=== PATIENT | female | born 1985 | race Caucasian/White ===

== ENCOUNTER 2022-09-18 06:00 | Emergency (ER) | payer OTHER, SELFPAY ==
[2022-09-18 06:30] VITALS: BP 133/70; PULSE 77; RESP 18; TEMP 36.4; O2SAT 98; BMI 26.6
--- NOTE | 2022-09-18 07:35 | ED_ITS ---
HPI - General Adult General Chief complaint: Abdominal Pain Stated complaint: back pain, possible UTI Time Seen by Provider: 09/18/22 07:31 Source: patient Mode of arrival: ambulatory Limitations: no limitations History of Present Illness HPI narrative: 36-year-old female with no major medical problems presents with low back pain, urinary frequency, urgency and dysuria. Symptoms started 24 hours ago. Symptoms are moderate in nature. There is no clear relieving or exacerbating features. There is no nausea vomiting. She denies any fevers or chills. Denies any vaginal bleeding and discharge. Patient describes her back pain is aching in nature. There is no numbness or tingling. There is no falls or injury. The pain does not radiate. Related Data Previous Rx's Medication Instructions Recorded cephalexin 500 mg capsule 500 mg PO Q12H 3 days #6 caps 09/18/22 phenazopyridine 200 mg tablet 200 mg PO TID PRN pain 6 doses #6 09/18/22 (Pyridium) tabs Allergies Allergy/AdvReac Type Severity Reaction Status Date / Time Unable to Assess Allergy Unverified 09/18/22 06:46 [facility] Social History Social History Advance Directives: No Advance Directives Information Provided: No Physical Exam ED Vital Signs: Vital Signs - 24 hr 09/18/22 06:30 Temperature 97.5 F Pulse Rate 77 Respiratory Rate 18 Blood Pressure 133/70 Pulse Oximetry 98 Oxygen Delivery Method Room Air BMI result Body Mass Index 26.6 GEN: Well developed, no acute distress, alert, oriented HEENT: Normocephalic, atraumatic, normal external ears, nose appears normal, no oropharyngeal edema or exudates Eyes: Normal to appearance Neck: Supple, no lymphadenopathy Respiratory: Talks in complete sentences, no respiratory distress, clear to auscultation bilaterally Cardiovascular: Regular rate and rhythm, no murmurs rubs or gallops Abdomen: Soft, nontender, nondistended, no guarding, no rebound Back: No CVA tenderness Extremities: No clubbing cyanosis or edema Neurologic: No focal neurologic deficits, cranial nerves 2-12 intact, strength is 5/5 bilaterally Skin: No rash Course Course Course Narrative: Patient presents with urinary complaints low back pain. She has no CVA tenderness. Suspect UTI. There is no vaginal discharge or bleeding. Exam is benign. There is no indication for emergent imaging. Will check urinalysis, urine . Will address treatment based on symptoms and laboratory analysis. Reevaluation(s) Reevaluation #1: Urinalysis shows mild pyuria. Certainly if there is any a urinary tract infections quite early. Will treat with Keflex twice daily for 3 days. Will also put the patient on Pyridium. Symptoms could be more consistent with bladder spasm or irritation. Her examination remains benign. Doubt any significant acute intra-abdominal process. Time: 08:10 Medical Decision Making Medical Decision Making [facility] Narrative: Patient presents with low back pain and urinary complaints. Examination is benign. Her abdomen is soft, nontender, no rebound or guarding. There is no CVA tenderness. Doubt kidney stone, appendicitis, cholecystitis, diverticulitis, colitis, IBD, IBS. She also denies any vaginal bleeding or discharge. Her last menstrual period was on the 04 of September. She would like to be tested for . Suspect UTI. Doubt pyelonephritis. Will check uri nalysis. Will treat symptomatically as needed. Differential Diagnosis Differential Diagnoses: The differential diagnosis associated with the presentation includes (UTI, pyelonephritis, IBD, IBS, musculoskeletal pain) Dysuria, low back pain Lab Data [facility] Lab Attestation statement: I reviewed the patient's lab results. Labs: Lab Results 09/18/22 09/18/22 Range/Units 07:52 07:52 Urine Color Yellow Urine Appearance Clear Urine pH 6.0 (5.0-9.0) Ur Specific [place] 1.010 (1.005-1.025) Urine Protein Negative (Neg-Trace) mg/dL Urine Glucose (UA) Negative (Negative) mg/dL Urine Ketones Trace (Negative) mg/dL Urine Blood Trace H (Negative) Urine Nitrite Negative (Negative) Ur Leukocyte Esterase Trace H (Negative) Urine RBC 0-2 (0-2) /HPF Urine WBC 6-10 H (0-5) /HPF Ur Squamous Epith Cells 6-10 (0-2) /HPF Urine Bacteria Trace (None Seen) Hyaline Casts 0-2 (0-2) /LPF Urine Test NEGATIVE (NEGATIVE) Prescription Management I considered prescription management with: Pain Medication and Antibiotic Discharge Plan Discharge Clinical Impression: Dysuria, Low back pain Patient Disposition: Home, Self-Care Instructions: Acute Low Back Pain (ED), Dysuria (ED) Prescriptions: New phenazopyridine [Pyridium] 200 mg tablet 200 mg PO TID PRN (Reason: pain) Qty: 6 0RF cephalexin 500 mg capsule 500 mg PO Q12H 3 Days Qty: 6 0RF Referrals: Physician,None [Primary Care Provider] -
[2022-09-18 07:59] LABS: Appearance Urine Clear; Color Urine Yellow; Glucose Urine UA Negative (Negative); Leukocyte Esterase Urine Trace (Negative); Nitrite Urine Negative (Negative); UMIC TRIGGER UACC YES; Urine Blood Trace (Negative); Urine Ketones Trace mg/dL (Negative); Urine Protein Negative (Neg-Trace)
[2022-09-18 08:01] LABS: UPreg QC Valid YES; Urine Pregnancy NEGATIVE (NEGATIVE)
[2022-09-18 08:04] LABS: Bacteria Urine Trace (None Seen); Hyaline Casts Urine 0-2 /LPF (0-2); RBC Urine 0-2 /HPF (0-2); UACC Culture Trigger YES
--- NOTE | 2022-09-18 08:22 | PC.NURSE ---
inst reviewed and teaching done re home care, follow up if needed and reasons to return,
== END 2022-09-18 08:22 | disposition home or self-care (01) ==
PROVIDERS: Physician Assistant; Emergency Provider Emergency Medicine
DX: R30.0 Dysuria (principal); M54.50 Low back pain, unspecified
CPT/HCPCS: 81001; 81003; 81025; 87086; 99282; 99283

== ENCOUNTER 2022-12-07 12:32 | Emergency (ER) | payer OTHER, SELFPAY ==
[2022-12-07 12:35] VITALS: BP 143/80; PULSE 82; RESP 18; TEMP 35.6; O2SAT 98
--- NOTE | 2022-12-07 12:35 | ED_ITS ---
HPI - Dental/Oral General Chief complaint: General Medical Stated complaint: facial swelling Time Seen by Provider: 12/07/22 12:53 Source: patient Mode of arrival: ambulatory Limitations: no limitations History of Present Illness HPI Narrative: patient is a 37-year-old female who presents emergency department for evaluation of dental pain with facial swelling. She reports onset of pain 4 days ago, right upper dental pain. Three days ago she woke in the morning with a small amount of swelling to the lip in this region and feels that this has progressed over the past couple of days. She has trialed [id number] Tylenol and ibuprofen without any improvement. She tried contacting her dentist but was unable to be seen. She has dental fractures in addition to dental caries. When asked she denies any fevers, chills, difficulty swallowing, shortness of breath, difficulty breathing or chest pain. Teeth map: 1. Fracture/ cavity 2. fracture/cavity Related Data Previous Rx's Medication Instructions Recorded cephalexin 500 mg capsule 500 mg PO Q12H 3 days #6 caps 09/18/22 phenazopyridine 200 mg tablet 200 mg PO TID PRN pain 6 doses #6 09/18/22 (Pyridium) tabs amoxicillin 875 mg-potassium 1 tab PO BID #14 tabs 12/07/22 clavulanate 125 mg tablet chlorhexidine gluconate 0.12 % 15 ml mucous membrane BID #118 mL 12/07/22 mouthwash oxycodone 5 mg tablet 5 mg PO Q8H PRN pain #10 tabs 12/07/22 Allergies Allergy/AdvReac Type Severity Reaction Status Date / Time No Known Allergies Allergy Verified 12/07/22 12:37 Review of Systems Review of Systems: Constitutional : No Fever, No Chills, No changes in PO intake, No difficulty speaking,? no recent dental procedure, no heat or cold intolerance while eating, no recent face trauma, ENT/Mouth : No swallowing difficulty, no change in voice, No jaw pain, positive localized facial swelling, no drooling, no trismus, no bleeding, no throat swelling, no lacerations, no tongue swelling, gum swelling, Eyes: No Eye Pain, No periorbital Swelling Cardiovascular : No Chest Pain, No SOB Respiratory : No Cough, No Sputum, No Wheezing, No Smoke Exposure, No Dyspnea Gastrointestinal : No Nausea, No Vomiting, No Diarrhea Genitourinary : No Dysuria Musculoskeletal : No Myalgias Skin : No rash, no facial swelling or redness, Neuro : No Weakness, No Numbness, No Headache Yes all other systems are reviewed and are negative [facility] Past Medical History Attestation statement: The following information was validated with the patient. Source: old records reviewed Social History Social History Advance Directives: No Advance Directives Information Provided: Yes Physical Exam 2 Vital Signs: Vital Signs: Last Vital Signs Temp 96.0 F L 12/07/22 12:35 Pulse 82 12/07/22 12:35 Resp 18 12/07/22 12:35 BP 143/80 H 12/07/22 12:35 Pulse Ox 98 12/07/22 12:35 O2 Del Method Room Air 12/07/22 12:35 BMI result Body Mass Index 30.0 Appearance: Alert. Oriented X3. No acute distress. Head: Normal external exam. Normocephalic. Atraumatic. Eyes: PERRLA. EOMI. Conjunctiva and sclera normal. Eyelids normal. ENT: EAC normal. TM's Normal. Pharynx normal. Uvula midline. Moist mucous membranes.? ?No trismus noted.? No drooling noted.? No muffled voice noted. Dentition:? Patient with poor dentition throughout with multiple old fractured teeth with multiple dental caries.? mild Gingival erythema. No fluctuance, although on the lateral gingiva of #1 there is white discoloration concerning for potential abscess.? Not consistent with peritonsillar abscess. Not consistent with dental abscess.? No salivary duct obstruction noted. Neck: Normal inspection. Neck supple. FROM. No adenopathy. Thyroid Normal. No meningeal signs. No neck mass noted.? Trachea midline. CVS: Normal heart rate and rhythm. Heart sound normal. No murmurs noted. Pulses normal throughout. Respiratory: No respiratory distress. Painless inspiration. Breath sounds normal. No wheezes/rales/rhonchi noted. Chest nontender. ?No accessory muscle usage noted or decreased air movement noted. Back:? Full range of motion noted. Skin: Skin warm and dry.? Normal skin color.? Normal skin turgor. No rashes/lesions/lacerations noted. Extremities: Extremities exhibit normal range of motion.? Extremities nontender. Neuro: Oriented X 3.? No motor deficit.? No sensory deficit.? Reflexes normal. Course Course Course Narrative: MAISHA 12:35pm - 37yoF presenting to the ED with c/o of right upper dental pain since thursday worse today. Reports she has been taking [id number] Tylenol and Motrin no symptomatic relief. She reports her pain is 8/10. Has tried to call dentist although they did not have any available appointments. She woke up with facial swelling today which she did not have on Thursday. Unsure if she has had fevers. Denies any trouble swallowing or breathing. On exam patient has old dental fracture to right upper molar. No obvious gingival swelling or erythema or abscess. No trismus or drooling. Normal voice. Plan: Patient stable to be evaluated in emergency Minor care. Medical Decision Making Medical Decision Making MDM Narrative: patient is a 37-year-old female who presents emergency department for evaluation of swelling in addition to the dental pain as per HPI. At the time my examination she is overall well-appearing, nontoxic, afebrile without tachycardia. There is no respiratory compromise. She is speaking clear full sentences. There does not appear to be any peritonsillar her concern for retropharyngeal abscess upon examination. She has multiple dental fractures and caries present, there is gingival erythema in although there is no overt fluctuance, on the lateral gingiva of tooth #1. There is whitish discoloration concerning for potential abscess. I reviewed this finding with patient, offered to have serum labs in addition to CT imaging to evaluate further for abscess. At this time patient declines CT imaging, she would like to trial a course of antibiotics and follow up with her dentist outpatient. She is going to contact their office tomorrow to schedule an appointment. At this time I feel that discharge home would be reasonable, we discussed worrisome signs and symptoms that would warrant re-evaluation in the emergency department, will send prescription for Augmentin in addition to oxycodone to patient's pharmacy. We discussed precautions with use of oxycodone. She verbalized understanding. Differential Diagnosis Differential Diagnoses: The differential diagnosis associated with the presentation includes ( As noted above) External Record Review External record reviewed: Other ( reviewed [employer] no conflicts) Tests considered The following testing was considered but not selected: I considered serum labs and CT imaging as noted above however patient declined and using shared decision-making patient to be discharged home Prescription Management I considered prescription management with: Pain Medication ( oxycodone) and Antibiotic ( Augmentin) Discharge Plan Discharge Clinical Impression: Dental infection Patient Disposition: Home, Self-Care Instructions: Dental Abscess (ED) Additional Instructions: as we discussed, there was concern after examination that there may be a potential right upper dental abscess, these typically require drainage/aspiration, and we could further investigate for this with the use of CT imaging. However, at this time you declined and wished to follow-up with your dentist. I have sent a prescription for Augmentin, antibiotic, to your pharmacy please complete the entire course. In addition I have sent a prescription for chlorhexidine mouthwash please use this as prescribed. You can take ibuprofen 200 mg, 3 tablets (600mg) every 6-8 hours as needed for pain, in addition to Tylenol 500 mg, 2 tablets (1,000mg) every 4-6 hours as needed for pain, but not to exceed 3 doses daily (3,000mg).? Have sent a prescription for oxycodone to the pharmacy for severe pain that is unrelieved by acetaminophen / ibuprofen. Oxycodone is a narcotic medication, may make you drowsy and it can be addictive, you should not drive, drink alcohol, or operate machinery while taking this medication. please return back to emergency department with any new or worsening symptoms or concerns. Prescriptions: New amoxicillin-pot clavulanate 875-125 mg tablet 1 tab PO BID Qty: 14 0RF chlorhexidine gluconate 0.12 % mouthwash 15 ml mucous membrane BID Qty: 118 0RF oxycodone 5 mg tablet 5 mg PO Q8H PRN (Reason: pain) Qty: 10 0RF Rx Instructions: Partial Fill upon patient request. No Action phenazopyridine [Pyridium] 200 mg tablet 200 mg PO TID PRN (Reason: pain) Qty: 6 0RF cephalexin 500 mg capsule 500 mg PO Q12H 3 Days Qty: 6 0RF Referrals: Physician,None [Primary Care Provider] -
== END 2022-12-07 14:03 | disposition home or self-care (01) ==
PROVIDERS: Emergency Provider Student in an Organized Health Care Education/Training Program
DX: K04.7 Periapical abscess without sinus (principal)
CPT/HCPCS: 99283

== ENCOUNTER 2023-01-31 12:20 | Emergency (ER) | payer OTHER, SELFPAY ==
--- NOTE | ~2023-01-31 | XR_ITS ---
EXAMINATION: Right ankle and right foot. CLINICAL INDICATION: Rule out fracture. TECHNIQUE: 3 views right foot and 2 views right ankle. FINDINGS: Right foot: There is no visible acute fracture or dislocation or subluxation. Visualized bones and intertarsal, tarsometatarsal and intertarsal phalangeal joints are normal. No bony erosive changes. No spurring. Right ankle: There is mild bilateral ankle soft tissue swelling. The ankle mortise and subtalar joints are normal. A small retrocalcaneal enthesophyte is seen. No acute fracture or dislocation. XR/XR ankle RT min 3V IMPRESSION: Small retrocalcaneal enthesophyte. No visible acute fracture, dislocation. Mild bimalleolar soft tissue swelling. Unremarkable right foot exam.
--- NOTE | ~2023-01-31 | XR_ITS ---
EXAMINATION: Right ankle and right foot. CLINICAL INDICATION: Rule out fracture. TECHNIQUE: 3 views right foot and 2 views right ankle. FINDINGS: Right foot: There is no visible acute fracture or dislocation or subluxation. Visualized bones and intertarsal, tarsometatarsal and intertarsal phalangeal joints are normal. No bony erosive changes. No spurring. Right ankle: There is mild bilateral ankle soft tissue swelling. The ankle mortise and subtalar joints are normal. A small retrocalcaneal enthesophyte is seen. No acute fracture or dislocation. XR/XR foot RT 2V IMPRESSION: Small retrocalcaneal enthesophyte. No visible acute fracture, dislocation. Mild bimalleolar soft tissue swelling. Unremarkable right foot exam.
[2023-01-31 13:27] VITALS: BP 108/61; PULSE 90; RESP 19; TEMP 36.6; O2SAT 98
--- NOTE | 2023-01-31 13:29 | ED_ITS ---
HPI - Extremity Problem General Chief complaint: Extremity Injury, Lower Stated complaint: R ankle inj Time Seen by Provider: 01/31/23 13:40 Source: patient Mode of arrival: ambulatory Limitations: no limitations History of Present Illness HPI Narrative: 37 yo female here with complaints of right ankle pain after eversion injury last evening. No weakness, tingling, numbness of the extremity. Related Data Previous Rx's Medication Instructions Recorded cephalexin 500 mg capsule 500 mg PO Q12H 3 days #6 caps 09/18/22 phenazopyridine 200 mg tablet 200 mg PO TID PRN pain 6 doses #6 09/18/22 (Pyridium) tabs amoxicillin 875 mg-potassium 1 tab PO BID #14 tabs 12/07/22 clavulanate 125 mg tablet chlorhexidine gluconate 0.12 % 15 ml mucous membrane BID #118 mL 12/07/22 mouthwash oxycodone 5 mg tablet 5 mg PO Q8H PRN pain #10 tabs 12/07/22 Allergies Allergy/AdvReac Type Severity Reaction Status Date / Time No Known Allergies Allergy Verified 01/31/23 13:27 Review of Systems Review of Systems: Yes all other systems are reviewed and are negative Constitutional: Constitutional: Reports no additional constitutional complaints, Denies body ache(s), Denies chills, Denies fever(s), Denies headache(s) and Denies weakness Eyes: Eyes: Reports no additional eye complaints and Denies change in vision ENT: Reports system reviewed and no additional complaints, except as documented, Denies dizziness, Denies headache(s), Denies nasal congestion, Denies nasal discharge and Denies neck pain Cardiovascular: Cardiovascular: Reports no additional cardiovascular complaints, Denies chest pain, Denies leg edema and Denies dyspnea Respiratory: Respiratory: Reports no additional respiratory complaints, Denies cough and Denies dyspnea Gastrointestinal: Gastrointestinal: Reports no additional gastrointestinal complaints, Denies abdominal pain, Denies diarrhea, Denies nausea and Denies vomiting Genitourinary: Genitourinary: Reports no additional female genitourinary complaints and Denies urinary incontinence Musculoskeletal: Musculoskeletal: Reports no additional musculoskeletal complaints, Denies back pain, Reports arthralgias, Denies joint swelling, Denies neck pain, Denies numbness and Denies tingling Integumentary/Breasts: Skin/Breast: Reports system reviewed and no additional complaints, except as docu and Denies rash Neurologic: Reports system reviewed and no additional complaints, except as documented, Denies Abnormal speech present, Denies dizziness, Denies headache(s), Denies numbness, Denies tingling and Denies weakness PMFSH Past Medical History Attestation statement: The following information was validated with the patient. Source: old records reviewed and nursing notes reviewed Social History Social History Advance Directives: No Physical Exam Vital Signs: Vital Signs: Last Vital Signs Temp 98 F 01/31/23 13:27 Pulse 90 01/31/23 13:27 Resp 19 01/31/23 13:27 BP 108/61 01/31/23 13:27 Pulse Ox 98 01/31/23 13:27 O2 Del Method Room Air 01/31/23 13:27 BMI result Body Mass Index 30.0 Const: General: cooperative, healthy appearing, comfortable and no acute distress Orientation/consciousness: patient oriented x3 Limitations: no limitations HEENT: Head: Yes normal to inspection Ears: hearing grossly normal bilaterally General nose exam: Normal external nose present Face and sinus: Yes normal facial exam Mouth: Normal oral and palatal mucosa present Throat: Yes posterior oropharynx normal Eyes: General: appearance normal, both eyes and all related structures Pupils: Equal, round and reactive pupils present Neck: Neck: Yes normal visual inspection Chest: Chest palpation & inspection: normal inspection of the chest Resp: Effort & Inspection: normal respiratory effort Auscultation: clear to auscultation bilaterally Cardio: Rate: regular rate Rhythm: regular rhythm Peripheral pulses: Peripheral pulses 2+ throughout GI: Inspection: Yes normal to inspection Palpation (GI): Soft to palpation and nontender Auscultation: normal bowel sounds Back/Spine/Pelvis: Thoracic/Lumbar Spine: thoracic and lumbar spine normal to inspection Skin: General skin exam: no rashes or lesions noted Neuro: General: patient oriented x3, no focal motor deficits and normal sensation to monofilament Cranial nerves: Yes Equal, round and reactive pupils present Cognition (Neuro): normal cognition Speech: No Abnormal speech present Gait exam (Neuro): Normal gait present Motor exam (neuro): 5/5 motor strength present throughout Extrem: Other: There is swelling, ecchymosis, tenderness over the right lateral ankle. There is no tenderness on palpation over the foot. There is no tenderness over medial ankle or posterior ankle. Negative Pacheco sign. Normal DP and PT pulses. Normal sensation. Normal active and passive range of motion. General: Yes normal to inspection Course Course Course Narrative: Patient complains of right ankle pain and swelling after fall No other complaint This rapid medical exam done in triage pending full evaluation in ER Reevaluation(s) Reevaluation #1: x-ray shows no fracture. likely sprain. patient placed in Maximilian wrap and given crutches for home. Reviewed rice. Reviewed worrisome signs and symptoms when to return to the emergency room. [place]ondral plan for discharge home. Medical Decision Making Medical Decision Making MDM Narrative: 37-year-old female here with right ankle pain after an eversion injury which occurred last evening. Will check x-rays. Differential Diagnosis Differential Diagnoses: The differential diagnosis associated with the presentation includes Fracture, sprain, dislocation low concern for vascular injury Independent Interpretation I performed an independent interpretation of an: Plain X-Ray Interpretation: I independently reviewed the x-ray and agree with the radiology report Radiology Impression Discussion of test interpretation with radiology: I have reviewed the radiologist's reading. Radiologist Impression: [address] [address] XRay Report Signed Patient: Cherelle Gomez MR#: [id number] : 1985 Acct:[id number] Age/Sex: 37 / F ADM Date: 01/31/23 Loc: .ED Attending Dr: Ordering Physician: David Rojo Date of Service: 01/31/23 Procedure(s): XR ankle RT min 3V Accession Number(s): [id number] cc: Physician,Unknown ; David Rojo~ EXAMINATION: Right ankle and right foot. CLINICAL INDICATION: Rule out fracture. TECHNIQUE: 3 views right foot and 2 views right ankle. FINDINGS: Right foot: There is no visible acute fracture or dislocation or subluxation. Visualized bones and intertarsal, tarsometatarsal and intertarsal phalangeal joints are normal. No bony erosive changes. No spurring. Right ankle: There is mild bilateral ankle soft tissue swelling. The ankle mortise and subtalar joints are normal. A small retrocalcaneal enthesophyte is seen. No acute fracture or dislocation. XR/XR ankle RT min 3V IMPRESSION: Small retrocalcaneal enthesophyte. No visible acute fracture, dislocation. Mild bimalleolar soft tissue swelling. Unremarkable right foot exam. Discharge Plan Discharge Clinical Impression: Ankle sprain and strain Patient Disposition: Home, Self-Care Instructions: Ankle Sprain (ED) Additional Instructions: APPLY ICE TO THE AREA USE THE AIRCAST AND CRUTCHES FOR THE NEXT FEW DAYS UNTIL ABLE TO BEAR WEIGHT WITHOUT EXPERIENCING PAIN ELEVATE THE EXTREMITY TAKE MOTRIN FOR PAIN NEEDED Prescriptions: No Action phenazopyridine [Pyridium] 200 mg tablet 200 mg PO TID PRN (Reason: pain) Qty: 6 0RF cephalexin 500 mg capsule 500 mg PO Q12H 3 Days Qty: 6 0RF amoxicillin-pot clavulanate 875-125 mg tablet 1 tab PO BID Qty: 14 0RF chlorhexidine gluconate 0.12 % mouthwash 15 ml mucous membrane BID Qty: 118 0RF oxycodone 5 mg tablet 5 mg PO Q8H PRN (Reason: pain) Qty: 10 0RF Rx Instructions: Partial Fill upon patient request. Referrals: Physician,Unknown J [Primary Care Provider] - 1 week Stand Alone Forms: Work/School Release
== END 2023-01-31 15:01 | disposition home or self-care (01) ==
PROVIDERS: Emergency Provider Emergency Medicine
DX: S93.401A Sprain of unspecified ligament of right ankle, initial encounter (principal); S96.911A Strain of unspecified muscle and tendon at ankle and foot level, right foot, initial encounter; X50.1XXA Overexertion from prolonged static or awkward postures, initial encounter; Y93.9 Activity, unspecified; Y92.9 Unspecified place or not applicable; Y99.9 Unspecified external cause status
CPT/HCPCS: 73610; 73620; 99282; 99283

== ENCOUNTER 2023-02-19 15:48 | Emergency (ER) | payer OTHER, SELFPAY ==
[2023-02-19 16:45] VITALS: BP 136/79; PULSE 88; RESP 18; TEMP 36.6; O2SAT 99; BMI 27.5
--- NOTE | 2023-02-19 16:52 | ED_ITS ---
HPI - General Adult General Chief complaint: Recheck/Abnormal Lab/Rx Stated complaint: not feeling well Time Seen by Provider: 02/19/23 16:51 Source: patient Mode of arrival: ambulatory Limitations: no limitations History of Present Illness HPI narrative: 37 y o female presenting for evaluation of possible . Reports positive urine hcg x1 at home today, requesting confirmation. LMP 01/16, states cycles are pretty regular, approximately every 28 days. Patient also c/o breast tenderness and mild nausea. No vaginal spotting or discharge. Denies chest pain, shortness of breath, dizziness, abdominal pain, vomiting, diarrhea, fevers or chills. Not currently taking vitamins. Related Data Previous Rx's Medication Instructions Recorded cephalexin 500 mg capsule 500 mg PO Q12H 3 days #6 caps 09/18/22 phenazopyridine 200 mg tablet 200 mg PO TID PRN pain 6 doses #6 09/18/22 (Pyridium) tabs amoxicillin 875 mg-potassium 1 tab PO BID #14 tabs 12/07/22 clavulanate 125 mg tablet chlorhexidine gluconate 0.12 % 15 ml mucous membrane BID #118 mL 12/07/22 mouthwash oxycodone 5 mg tablet 5 mg PO Q8H PRN pain #10 tabs 12/07/22 cephalexin 500 mg tablet 500 mg PO Q6H 10 days #40 tabs 02/19/23 vit no.95-ferrous 1 tab PO DAILY #30 tabs 02/19/23 fumarate 28 mg-folic acid 800 mcg tablet () Allergies Allergy/AdvReac Type Severity Reaction Status Date / Time No Known Allergies Allergy Verified 02/19/23 16:45 Review of Systems Review of Systems: Constitutional : No Weight loss, No Fever, No Chills, No Fatigue, No Malaise Cardiovascular : No Chest Pain, No SOB, No Dyspnea on Exertion, No Orthopnea, No Edema, No Palpitations Respiratory : No Cough, No Sputum, No Wheezing Gastrointestinal : + Nausea, No Vomiting, No Diarrhea, No Constipation, No abdominal Pain, No Hematochezia, No Melena Genitourinary : No Dysuria, No Urinary Frequency, No Hematuria, +breast tenderness Musculoskeletal : No joint pain, No Myalgias, No Joint Swelling Skin : No Skin Lesions, No rash Neuro : No Weakness, No Numbness, No Dizziness, No Headache Psych : No Anxiety/Panic, No Depression All other systems reviewed and are negative Yes all other systems are reviewed and are negative [facility] Past Medical History Attestation statement: The following information was validated with the patient. Source: old records reviewed and nursing notes reviewed Social History Social History Advance Directives: No Physical Exam ED Vital Signs: Vital Signs - 24 hr 02/19/23 16:45 02/19/23 17:03 Temperature 97.8 F 99.1 F Pulse Rate 88 74 Respiratory Rate 18 16 Blood Pressure 136/79 140/67 H Pulse Oximetry 99 98 Oxygen Delivery Method Room Air Room Air BMI result Body Mass Index 27.5 VSS Appearance: Alert.? Oriented X3.? No acute distress.? Head: Normocephalic, atraumatic, no step-offs or deformities Eyes: Pupils equal, round and reactive to light.? Neck: Normal inspection.? Neck supple.? CVS: Normal heart rate and rhythm.? Pulses normal.? Respiratory: No respiratory distress.? Breath sounds normal.? Abdomen: Soft and nontender.? Skin: Skin warm and dry.? Normal skin color.? Normal skin turgor.? Extremities: No lower extremity edema.? No calf ttp. 5/5 strength to bilateral upper and lower extremities Neuro: Oriented X 3.? No motor deficit.? No sensory deficit. CN 2-12 intact Course Course Course Narrative: RME: 37 yold female presents to the ED to confirm pregancy. patient states no phsyical complaints. took pregnany test at home that was positive and just wants to confimr . URine pregancy ordered Reevaluation(s) Reevaluation #1: Positive urine will have her follow-up with OBGYN to have a ultrasound to confirm intrauterine . No need for emergent ultrasound at this time. UA with positive infection will give Keflex. Will give her information on OBGYN in the area. And sent her home with vitamins. Educated patient on diagnosis and treatment plan, answered all question, patient verbalizes understanding. At this time patient will be discharged home, advised to return with new or worsening symptoms. Educated on worrisome signs and symptoms and when to return. At this time I feel comfortable discharge home. Time: 17:39 Medical Decision Making Medical Decision Making [facility] Narrative: 37 y o female presenting for request for testing, LMP 01/16 and positive urine hcg x1 at home today PE benign Possible vs false positive test. Well-appearing, VSS, tolerating PO intake. No medical complaints. Unlikely metabolic derangements. Breast tenderness likely secondary to hormonal imbalances versus unlikely inflammatory breast cancer, mastitis, cellulitis or necrotizing infection or abscess. Nausea likely secondary to possible versus hormones unlikely from acute abdomen or abdominal causes. No vaginal bleeding unlikely threatened /miscarriage Plan -- UA, urine hcg Differential Diagnosis Differential Diagnoses: The differential diagnosis associated with the presentation includes Possible vs false positive test. Well-appearing, VSS, tolerating PO intake. No medical complaints. Unlikely metabolic derangements. Breast tenderness likely secondary to hormonal imbalances versus unlikely inflammatory breast cancer, mastitis, cellulitis or necrotizing infection or abscess. Nausea likely secondary to possible versus hormones unlikely from acute abdomen or abdominal causes. No vaginal bleeding unlikely threatened /miscarriage Admission/Observation Consideration of admission/observation: Escalation of care including admission/observation considered No indication Lab Data [facility] Lab Attestation statement: I reviewed the patient's lab results. Labs: Lab Results 02/19/23 Range/Units 17:02 Urine Color Yellow Urine Appearance Clear Urine pH 6.0 (5.0-9.0) Ur Specific Ranger <= 1.005 (1.005-1.025) Urine Protein Negative (Neg-Trace) mg/dL Urine Glucose (UA) Negative (Negative) mg/dL Urine Ketones Trace (Negative) mg/dL Urine Blood Negative (Negative) Urine Nitrite Positive H (Negative) Ur Leukocyte Esterase Trace H (Negative) Urine RBC 0-2 (0-2) /HPF Urine WBC 6-10 H (0-5) /HPF Ur Squamous Epith Cells 6-10 (0-2) /HPF Urine Bacteria 4+ (None Seen) Hyaline Casts 0-2 (0-2) /LPF Urine Test POSITIVE H (NEGATIVE) External Record Review External record reviewed: Inpatient record Critical Care Time Critical Care Time Critical Care Time: No Discharge Plan Discharge Clinical Impression: Positive urine test, Urinary tract infection Patient Disposition: Home, Self-Care Instructions: (ED), Urinary Tract Infection in (ED) Additional Instructions: Take your medications as prescribed. If you were prescribed antibiotics today, it is important that you take your medication to their entirety, do not skip any doses, do not finish them early. Follow-up with your primary care provider this week. Return to the emergency department with new or worsening symptoms. In case of emergency call 911 Follow up with your OBGYN Take your prenatals daily. You will need a quantitative Hcg blood level to determine how far along you are and an ultrasound to confirm intrauterine . Prescriptions: New cephalexin 500 mg tablet 500 mg PO Q6H 10 Days Qty: 40 0RF PNV cmb#95-ferrous fumarate-FA [] 28 mg iron- 800 mcg tablet 1 tab PO DAILY Qty: 30 3RF No Action phenazopyridine [Pyridium] 200 mg tablet 200 mg PO TID PRN (Reason: pain) Qty: 6 0RF cephalexin 500 mg capsule 500 mg PO Q12H 3 Days Qty: 6 0RF amoxicillin-pot clavulanate 875-125 mg tablet 1 tab PO BID Qty: 14 0RF chlorhexidine gluconate 0.12 % mouthwash 15 ml mucous membrane BID Qty: 118 0RF oxycodone 5 mg tablet 5 mg PO Q8H PRN (Reason: pain) Qty: 10 0RF Rx Instructions: Partial Fill upon patient request. Referrals: Physician,Mitzi Rincon [Primary Care Provider] - 2 days Surinder You MD [Physician] - 1 day Stand Alone Forms: Work/School Release Interventions: ED Discharge Assessment Last Done: 02/19/23 17:44 Discharge Date/Time: 02/19/23 17:45
[2023-02-19 17:03] VITALS: BP 140/67; PULSE 74; RESP 16; TEMP 37.3; O2SAT 98
--- NOTE | 2023-02-19 17:06 | MHC.EDTECH ---
THIS PCT JUST ASSUMED CARE OF PT ,URINE SAMPLE COLLECTED AND SENT TO LAB ,VITALS SIGN TAKEN .
[2023-02-19 17:15] LABS: Appearance Urine Clear; Color Urine Yellow; Glucose Urine UA Negative (Negative); Leukocyte Esterase Urine Trace (Negative); Nitrite Urine Positive (Negative); Specific Gravity - Urine <= 1.005 (1.005-1.025); UMIC TRIGGER UACC YES; Urine Blood Negative (Negative); Urine Ketones Trace mg/dL (Negative); Urine Protein Negative (Neg-Trace)
[2023-02-19 17:21] LABS: UPreg QC Valid YES; Urine Pregnancy POSITIVE (NEGATIVE)
[2023-02-19 17:24] LABS: Bacteria Urine 4+ (None Seen); Hyaline Casts Urine 0-2 /LPF (0-2); RBC Urine 0-2 /HPF (0-2); UACC Culture Trigger YES
== END 2023-02-19 17:45 | disposition home or self-care (01) ==
PROVIDERS: Physician Assistant; Emergency Provider Emergency Medicine
DX: O23.41 Unspecified infection of urinary tract in pregnancy, first trimester (principal); B96.20 Unspecified Escherichia coli [E. coli] as the cause of diseases classified elsewhere; N39.0 Urinary tract infection, site not specified; Z3A.00 Weeks of gestation of pregnancy not specified
CPT/HCPCS: 81001; 81025; 87086; 87088; 87186; 99283

== ENCOUNTER 2023-12-18 02:08 | Emergency (ER) | payer OTHER, SELFPAY ==
--- NOTE | ~2023-12-18 | XR_ITS ---
EXAMINATION: XR ANKLE, RIGHT CLINICAL INFORMATION: Injury, pain COMPARISON: 01/31/2023 TECHNIQUE: AP, lateral, and mortise views of the right ankle. FINDINGS: Osseous alignment is anatomic. Joint spaces are maintained. No acute fracture is seen. No significant effusion or focal soft tissue abnormality. XR/XR ankle RT min 3V IMPRESSION: No acute findings identified.
[2023-12-18 02:16] VITALS: BP 141/76; PULSE 72; RESP 20; TEMP 36.7; O2SAT 99; BMI 29.3
--- NOTE | 2023-12-18 03:06 | ED_ITS ---
HPI - Extremity Injury (Lower) General Chief Complaint: Extremity Injury, Lower Stated Complaint: right ankle sprained? Time Seen by Provider: 12/18/23 02:52 Source: patient Mode of arrival: ambulatory Limitations: no limitations History of Present Illness ED Provider: bob HPI Narrative: Patient comes here with pain in right ankle after rolled right ankle on the sidewalk curb earlier yesterday patient is able to ambulate with slight limp no other injuries Related Data Previous Rx's ?Medication ?Instructions ?Recorded cephalexin 500 mg capsule 500 mg PO Q12H 3 days #6 caps 09/18/22 phenazopyridine 200 mg tablet 200 mg PO TID PRN pain 6 doses #6 09/18/22 (Pyridium) tabs amoxicillin 875 mg-potassium 1 tab PO BID #14 tabs 12/07/22 clavulanate 125 mg tablet chlorhexidine gluconate 0.12 % 15 ml mucous membrane BID #118 mL 12/07/22 mouthwash oxycodone 5 mg tablet 5 mg PO Q8H PRN pain #10 tabs 12/07/22 cephalexin 500 mg tablet 500 mg PO Q6H 10 days #40 tabs 02/19/23 vit no.95-ferrous 1 tab PO DAILY #30 tabs 02/19/23 fumarate 28 mg-folic acid 800 mcg tablet () ibuprofen 600 mg tablet 600 mg PO Q6H PRN fever or pain 12/18/23 #30 tabs Allergies Allergy/AdvReac Type Severity Reaction Status Date / Time No Known Allergies Allergy Verified 12/18/23 02:19 Review of Systems 2 Review of Systems: Yes all other systems are reviewed and are negative PMFSH Social History Social History Smoked in Last 30 Days: No Use of substances other than those prescribed or required for medical reasons: No Advance Directives: No Advance Directives Information Provided: No Do you have a plan to hurt others: No Plan Patient : No Physical Exam 2 Vital Signs: Vital Signs: Last Vital Signs Temp 98.1 F 12/18/23 03:13 Pulse 72 12/18/23 03:13 Resp 20 12/18/23 03:13 BP 141/76 H 12/18/23 03:13 Pulse Ox 99 12/18/23 03:13 O2 Del Method Room Air 12/18/23 03:13 BMI result Body Mass Index 29.3 Extrem: Ankle/foot/toe images: 1. Soft tissue swelling with tenderness good range of movement ankle mortise intact neurovascular intact Medications Administered Discontinued Medications Generic Name Dose Route Start Last Admin Trade Name Freq PRN Reason Stop Dose Admin Ibuprofen 600 mg 12/18/23 02:57 12/18/23 03:37 Ibuprofen 600 Mg Tablet PO 12/18/23 02:58 600 mg ONCE ONE Administration Medical Decision Making Medical Decision Making MDM Narrative: Patient has mild ankle sprain x-ray negative for fracture Differential Diagnosis Differential Diagnoses: The differential diagnosis associated with the presentation includes Independent Interpretation I performed an independent interpretation of an: Plain X-Ray Interpretation: Negative for fracture Radiology Impression Discussion of test interpretation with radiology: I have reviewed the radiologist's reading. Discharge Plan Discharge Clinical Impression: Ankle sprain and strain Patient Disposition: Home, Self-Care Instructions: Ankle Sprain (ED), Ankle Stirrup Splint (ED) Additional Instructions: Use the ankle stirrup splint for support Ibuprofen for pain Prescriptions: New ibuprofen 600 mg tablet 600 mg PO Q6H PRN (Reason: fever or pain) Qty: 30 0RF No Action phenazopyridine [Pyridium] 200 mg tablet 200 mg PO TID PRN (Reason: pain) Qty: 6 0RF cephalexin 500 mg capsule 500 mg PO Q12H 3 Days Qty: 6 0RF amoxicillin-pot clavulanate 875-125 mg tablet 1 tab PO BID Qty: 14 0RF chlorhexidine gluconate 0.12 % mouthwash 15 ml mucous membrane BID Qty: 118 0RF oxycodone 5 mg tablet 5 mg PO Q8H PRN (Reason: pain) Qty: 10 0RF Rx Instructions: Partial Fill upon patient request. cephalexin 500 mg tablet 500 mg PO Q6H 10 Days Qty: 40 0RF PNV cmb#95-ferrous fumarate-FA [] 28 mg iron- 800 mcg tablet 1 tab PO DAILY Qty: 30 3RF Stand Alone Forms: Work/School Release Interventions: ED Discharge Assessment Last Done: 12/18/23 03:13 Discharge Date/Time: 12/18/23 03:13 Print Language: Faroese
[2023-12-18 03:13] VITALS: BP 141/76; PULSE 72; RESP 20; TEMP 36.7; O2SAT 99
[2023-12-18] MEDS: Ibuprofen 600 MG TABLET PO (03:37)
== END 2023-12-18 03:13 | disposition home or self-care (01) ==
PROVIDERS: Emergency Provider Internal Medicine
DX: S93.401A Sprain of unspecified ligament of right ankle, initial encounter (principal); S96.911A Strain of unspecified muscle and tendon at ankle and foot level, right foot, initial encounter; W10.1XXA Fall (on)(from) sidewalk curb, initial encounter; Y93.01 Activity, walking, marching and hiking; Y92.480 Sidewalk as the place of occurrence of the external cause; Y99.9 Unspecified external cause status
CPT/HCPCS: 73610; 99283; 99284